=== PATIENT | male | born 2000 | race Caucasian/White ===

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

== ENCOUNTER 2020-07-01 10:16 | Emergency (ER) | payer OTHER ==
[~2020-07-01] VITALS: Ht 177.8 cm; Wt 118.3 kg
[2020-07-01 10:17] VITALS: BP 119/80
[2020-07-01] MEDS ORDERED: FLUO10CA16 (10:25)
== END 2020-07-01 12:02 | disposition home or self-care (01) ==
LOC: M ED 10:16
DX: B34.9 Viral infection, unspecified (principal); R53.81 Other malaise; R51 Headache; R68.83 Chills (without fever); F32.9 Major depressive disorder, single episode, unspecified; Z88.2 Allergy status to sulfonamides; Z79.899 Other long term (current) drug therapy